=== PATIENT | male | born 1940 | race Caucasian/White ===

== ENCOUNTER 2018-02-27 16:40 | Inpatient (IN) ==
--- NOTE | 2018-02-27 17:11 | ED ---
HPI General Chief complaint: Respiratory Symptoms Stated complaint: Breathing Complaint Time Seen by Provider: 02/27/18 16:56 History of Present Illness HPI narrative: 77-year-old male with history of polymyalgia rheumatica presents for evaluation of dyspnea. Symptoms started initially 1 month ago. He reports dyspnea with exertion and orthopnea. He reports that he has had swelling around the ankles. He was seen by his primary care physician 1 week ago and prescribed a diuretic, he does not recall the name right now, but symptoms have worsened which prompted evaluation. He reports that he has had a cough with some yellow phlegm production. He denies any chest pain, nausea, vomiting, abdominal pain, leg pain, recent travel, recent surgery. Denies any history of cardiac illness, COPD, liver disease. No other complaints. Primary care physician Dr. Mcnair Related Data Home Medications Medication Instructions Recorded Confirmed alprazolam 0.5 mg PO DAILY 02/27/18 02/27/18 finasteride 1 mg PO DAILY 02/27/18 02/27/18 furosemide 20 mg PO DAILY 02/27/18 02/27/18 meloxicam 15 mg PO DAILY 02/27/18 02/27/18 tamsulosin 0.4 mg PO DAILY 02/27/18 02/27/18 trazodone 50 mg PO HS 02/27/18 02/27/18 Allergies Allergy/AdvReac Type Severity Reaction Status Date / Time No Known Allergies Allergy Verified 02/27/18 16:50 Review of Systems ROS: all other systems reviewed are negative PMFSH Medical History Medical History PMR (polymyalgia rheumatica) (Acute) Surgical History Surgical History Previous back surgery (Acute) Social History Social History Substance History: No History of Abuse Smoking Status: Former smoker How Often Do You Have a Drink Containing Alcohol: 4 or more times a week Recent Travel in [facility] within the Last 8 Weeks: No Recent Out of Country Travel within the Last 8 Weeks: No Exam Narrative Exam Narrative: GENERAL: Well-developed well-nourished male in no acute distress SKIN: Warm and dry. HEAD: Atraumatic. Normocephalic. EYES: Pupils equal and round. No scleral icterus. No injection or drainage. ENT: No nasal bleeding or discharge. Mucous membranes pink and moist. NECK: Trachea midline. No JVD. CARDIOVASCULAR: Regular rate and rhythm. No murmur appreciated. RESPIRATORY: No accessory muscle use. Crackles noted at the bases. GASTROINTESTINAL: Abdomen soft, non-tender, nondistended. Hepatic and splenic margins not palpable. MUSCULOSKELETAL: No obvious deformities. No clubbing. No cyanosis. 1+ pretibial edema bilaterally. NEUROLOGICAL: Awake and alert. No obvious cranial nerve deficits. Motor grossly within normal limits. Normal speech. Course Initial Documented Vital Signs Temperature 97.7 F 02/27/18 16:48 Pulse Rate 89 02/27/18 16:48 Respiratory Rate 20 02/27/18 16:48 Blood Pressure 164/86 H 02/27/18 16:48 Pulse Oximetry 97 02/27/18 16:48 Last Documented Vital Signs Temperature 97.7 F 02/27/18 16:48 Pulse Rate 120 H 02/27/18 20:05 Respiratory Rate 18 02/27/18 20:05 Blood Pressure 157/105 H 02/27/18 20:05 Pulse Oximetry 98 02/27/18 20:05 Medical Decision Making SHIRLEY Attestation SHIRLEY supervised visit: Yes Attestation: I, Dr. Rich, have reviewed the advance practice practitioner's documentation and am in agreement, met with the patient face to face, made the diagnosis, and the medical decision making was done by me. *My assessment and Findings: Patient is a 77 year old male who comes in complaining of SOB. Exam shows bilateral lower extremity edema as well as crackles in the lungs. Patient is seen to have multiple PVCs on the clinical research monitor. Started on Amiodarone, cardiology consulted. Patient has already taken two doses of Lasix this morning. Patient will require admission. [facility] Narrative Medical decision making narrative: The patient was placed on ECG monitoring pulse oximetry. Twelve-lead EKG was obtained revealing sinus rhythm with frequent PVCs. Lab work, chest x-ray ordered. Lab work reveals a BNP of 548, calcium 8, chest x-ray reveals patchy bibasilar infiltrates, CT pulmonary angiogram reveals bilateral pleural effusions. During the patient's hospital stay multiple PVCs were noted, heart rate intermittently elevated up to 130. The patient was started on amiodarone, bolus /drip, discussed with bow tacker Dr. antonio who is agreeable. The patient will be admitted for further workup. Medical Screen Exam Complete: Yes Emergency Medical Condition: Yes Differential Diagnosis Differential Diagnosis: CHF, pulmonary edema, bronchitis, pneumonia, pleural effusion, pneumothorax, pulmonary embolism Lab Data Result diagrams: 02/27/18 17:12 02/27/18 17:12 Lab Results 02/27/18 02/27/18 02/27/18 Range/Units 17:12 17:12 17:12 WBC 11.4 H (4.0-11.0) th/mm3 RBC 4.04 L (4.50-5.90) mil/mm3 Hgb 12.4 L (13.0-17.0) gm/dL Hct 36.6 L (39.0-51.0) % MCV 90.7 (80.0-100.0) fL MCH 30.8 (27.0-34.0) pg MCHC 34.0 (32.0-36.0) % RDW 13.6 (11.6-17.2) % Plt Count 412 (150-450) th/mm3 MPV 8.6 (7.0-11.0) fL Neut % (Auto) 64.7 (16.0-70.0) % Lymph % (Auto) 23.6 (9.0-44.0) % [place] % (Auto) 9.6 H (0.0-8.0) % Eos % (Auto) 1.0 (0.0-4.0) % Baso % (Auto) 1.1 (0.0-2.0) % Neut # (Auto) 7.4 (1.8-7.7) th/mm3 Lymph # (Auto) 2.7 (1.0-4.8) th/mm3 [place] # (Auto) 1.1 H (0.0-0.9) th/mm3 Eos # (Auto) 0.1 (0.0-0.4) th/mm3 Baso # (Auto) 0.1 (0.0-0.2) th/mm3 WBC Differential . Differential Comment Auto diff final Sodium 136 (136-145) meq/L Potassium 4.3 (3.5-5.1) meq/L Chloride 103 (98-107) meq/L Carbon Dioxide 26.0 (21.0-32.0) meq/L Anion Gap 7 (5-15) meq/L BUN 12 (7-18) mg/dL Creatinine 0.98 (0.60-1.30) mg/dL Estimated GFR 74 L (>89) mL/min Random Glucose 97 (74-106) mg/dL Calcium 8.0 L (8.5-10.1) mg/dL Magnesium 2.2 (1.5-2.5) mg/dL Total Bilirubin 0.4 (0.2-1.0) mg/dL AST 12 L (15-37) U/L ALT 22 (12-78) U/L Alkaline Phosphatase 105 (45-117) U/L Total Creatine Kinase 89 (39-308) U/L Troponin I 0.03 (0.02-0.05) ng/mL B-Natriuretic Peptide 548 H (0-100) pg/mL Total Protein 7.3 (6.4-8.2) g/dL Albumin 3.4 (3.4-5.0) g/dL Imaging Data Radiologist's impression: Chest X-Ray 02/27/18 17:08 CONCLUSION: Patchy bibasilar infiltrates with prominence of pulmonary vasculature suggestive most likely of pulmonary edema versus pneumonia. Chest CTA 02/27/18 18:43 CONCLUSION: Bilateral pleural effusions, bibasilar consolidation and right middle lobe/ lingula atelectasis and/or infiltrate. There is no evidence of PE for technique. Discharge Plan Discharge Disposition Patient Disposition: ED Admit(ED Internal Use Only) Discharge Condition Condition: Stable Discharge Details Diagnosis: Frequent PVCs, Pleural effusion, bilateral, Elevated brain natriuretic peptide (BNP) level Physicians Team ED Provider: Tati Rich ED Midlevel Provider: Joao Hawkins Primary Care Provider: UNKNOWN, Rxs /Orders / Referrals /Forms Prescriptions: No Action trazodone 50 mg Tablet 50 mg PO HS RF: 0 meloxicam 15 mg Tablet 15 mg PO DAILY RF: 0 alprazolam 0.5 mg Tablet 0.5 mg PO DAILY RF: 0 tamsulosin 0.4 mg Capsule 0.4 mg PO DAILY RF: 0 furosemide 20 mg Tablet 20 mg PO DAILY RF: 0 finasteride 1 mg Tablet 1 mg PO DAILY RF: 0 Status ED Status: Pending Admission
[2018-02-27 17:29] LABS: Baso # (Auto) 0.1 th/mm3 (0.0-0.2); Baso % (Auto) 1.1 % (0.0-2.0); Eos # (Auto) 0.1 th/mm3 (0.0-0.4); Hematocrit 36.6 % (39.0-51.0); Hemoglobin 12.4 gm/dL (13.0-17.0); Lymph # (Auto) 2.7 th/mm3 (1.0-4.8); Lymph % (Auto) 23.6 % (9.0-44.0); Mean Corpuscular Hemoglobin 30.8 pg (27.0-34.0); Mean Corpuscular Volume 90.7 fL (80.0-100.0); Mean Platelet Volume 8.6 fL (7.0-11.0); Mono # (Auto) 1.1 th/mm3 (0.0-0.9); Mono % (Auto) 9.6 % (0.0-8.0); Neut # (Auto) 7.4 th/mm3 (1.8-7.7); Neut % (Auto) 64.7 % (16.0-70.0); Platelet Count 412 th/mm3 (150-450); Red Blood Count 4.04 mil/mm3 (4.50-5.90); Red Cell Distribution Width 13.6 % (11.6-17.2); White Blood Count 11.4 th/mm3 (4.0-11.0)
--- NOTE | 2018-02-27 17:46 | XR ---
EXAM DATE: 02/27/2018 5:42 PM EST AGE/SEX: 77 years / Male INDICATIONS: Cough. CLINICAL DATA: This is the patient's initial encounter. Patient reports that signs and symptoms have been present for 1 day and indicates a pain score of 0/10. MEDICAL/SURGICAL HISTORY: None. None. COMPARISON: [facility], XR CHEST PA AND LAT, 10/16/2017. . FINDINGS: There appears to be some patchy infiltrates in both lower lung queen. There is prominence of the pul monary vasculature. These findings are new compared to the prior exam. The heart size is enlarged. Th ere is mild blunting of the costophrenic angles. The bony structures are grossly intact and stable. CONCLUSION: Patchy bibasilar infiltrates with prominence of pulmonary vasculature suggestive most likely of pulmo nary edema versus pneumonia. Electronically signed by: Basilio Estes MD Board Certified Radiologist 02/27/2018 5:44 PM EST
[2018-02-27] MEDS ORDERED: Calcium Gluconate Inj 1 GM in Dextrose 5% in Water Inj 100 ML IV.SIG ONE ×2 (18:03)
[2018-02-27 18:15] LABS: Albumin 3.4 g/dL (3.4-5.0); Anion Gap 7 meq/L (5-15); Aspartate Aminotransferase 12 U/L (15-37); Blood Urea Nitrogen 12 mg/dL (7-18); Chloride 103 meq/L (98-107); Glomerular Filtration Rate 74 mL/min (>89); Glucose,Random 97 mg/dL (74-106); Magnesium 2.2 mg/dL (1.5-2.5); Potassium 4.3 meq/L (3.5-5.1); Sodium 136 meq/L (136-145)
[2018-02-27 18:19] LABS: Alanine Aminotransferase 22 U/L (12-78); Alkaline Phosphatase 105 U/L (45-117); Total Protein 7.3 g/dL (6.4-8.2); Troponin I 0.03 ng/mL (0.02-0.05)
[2018-02-27 18:21] LABS: Creatine Kinase 89 U/L (39-308)
[2018-02-27] MEDS ORDERED: Amiodarone Inj 150 MG in Dextrose 5% in Water Inj 97 ML IV.SIG ONE ×2 (18:48)
--- NOTE | 2018-02-27 19:46 | CT ---
EXAM DATE: 02/27/2018 7:41 PM EST AGE/SEX: 77 years / Male INDICATIONS: Shortness of breath and chest tightness. CLINICAL DATA: This is the patient's initial encounter. Patient reports that signs and symptoms have been present for 1 week and indicates a pain score of 3/10. MEDICAL/SURGICAL HISTORY: . Polymyalgia rheumatic. . Back surgery. RADIATION DOSE: 10.62 CTDI (mGy) COMPARISON: [facility], CHEST 1V SINGLE AP, 02/27/2018. . TECHNIQUE: Volumetric scanning was performed using a multi-row detector CT scanner during bolus infu tyesha of 74 ml Omnipaque 350 (iohexol) nonionic water-soluble contrast as a single exam dose. The elise a was post processed with a variety of visualization algorithms including full volume maximum intensi ty projection and sliding thin slab reformation. Using automated exposure control and adjustment of the mA and/or kV according to patient size, radiation dose was kept as low as reasonably achievable t o obtain optimal diagnostic quality images. DICOM format image data is available electronically for review and comparison. FINDINGS: Significant chronic degenerative changes within bilateral glenohumeral joints. Moderate bilateral ple ural effusions are present with bibasilar consolidation and/or compressive collapse in addition to fo kunal atelectasis and/or infiltrate within right middle lobe and lingula. There is no evidence of PE fo r technique. CONCLUSION: Bilateral pleural effusions, bibasilar consolidation and right middle lobe/lingula atelectasis and/or infiltrate. There is no evidence of PE for technique. Electronically signed by: Garret Hernández MD Board Certified Radiologist 02/27/2018 7:45 PM EST
[2018-02-27] MEDS ORDERED: Acetaminophen 325 MG Tablet PO PRN (20:26)
[2018-02-27] MEDS ORDERED: Bisacodyl 10 MG Supp RECTAL PRN (20:26)
--- NOTE | 2018-02-27 23:57 | P.HPIM ---
History of Present Illness Primary Care Physician: UNKNOWN History of Present Illness: 77-year-old male with a history of polymyalgia rheumatica who presents with a one-week history of progressively worsening shortness of breath, cough productive of clear sputum, mild peripheral edema in the ankles. He saw his primary care doctor 1 week ago and was prescribed Lasix which he has been taking without significant improvement. Patient denies any chest pain, nausea, vomiting, lightheadedness, dizziness, fevers, chills. Inpatient Certification: I certify that the inpatient services were ordered in accordance with Medicare regulations governing the order. This includes certification that hospital inpatient services are reasonable and necessary and in the case of services not specified as inpatient-only under 42 CFR 419.22(n), that they are appropriately provided as inpatient services in accordance to with the 2-midnight benchmark under 43 CFR 412.3(e) Estimated Total Length of Stay (Days): 2 Plans for Post Hospital Care: Not yet determined Review of Systems All other systems reviewed negative except as stated in [facility] - History History Provided By: Patient, Family Member - Medical History Medical History: Medical History (Last Updated 02/28/18 @ 00:03 by Christopher Keyes MD) Anxiety BPH (benign prostatic hyperplasia) PMR (polymyalgia rheumatica) - Surgical History Surgical History: Surgical History (Last Updated 02/27/18 @ 16:50 by Diane Reyes) Previous back surgery - Family History Family History: Family History (Last Updated 02/28/18 @ 00:05 by Christopher Keyes MD) Other Family history non-contributory - Tobacco History Smoking Status: Former smoker - Alcohol History How Often Do You Have a Drink Containing Alcohol: 4 or more times a week - Substance Use History Substance History: No History of Abuse - Travel History Recent Travel in the [place] Within the Last 8 Weeks: No Recent Travel Out of the Country Within the Last 8 Weeks: No - Immunization History Tetanus Immunization: Unsure Medications and Allergies Active Medications: Active Medications Acetaminophen (Tylenol) 650 mg PO Q4H PRN PRN Reason: Temp > 100.4 Al Hydroxide/Mg Hydroxide (Milk Of [place] Liq) 30 ml PO Q12H PRN PRN Reason: Mild Constipation Bisacodyl (Dulcolax Supp) 10 mg RECTAL DAILY PRN PRN Reason: SEVERE CONSITIPATION Finasteride (Proscar) 1 mg PO DAILY KENYA Furosemide (Lasix) 20 mg PO DAILY KENYA Furosemide (Lasix Inj) 20 mg IV.PUSH BID@0900,1800 KENYA Amiodarone HCl 450 mg/ (Dextrose) 250 mls @ 33.33 mls/hr IV.CONT TITRATE PRN; Protocol PRN Reason: Per Protocol Last Admin: 02/27/18 19:31 Dose: 1 mg/min, 33.33 mls/hr Lactulose (Lactulose Liq) 30 ml PO DAILY PRN PRN Reason: SEVERE CONSITIPATION Ondansetron HCl (Zofran Inj) 4 mg IV.PUSH Q6H PRN PRN Reason: NAUSEA OR VOMITING Sennosides (Senokot) 17.2 mg PO Q12H PRN PRN Reason: Moderate Constipation Sodium Chloride (Ns Flush) 2 ml IV.FLUSH BID KENYA Sodium Chloride (Ns Flush) 2 ml IV.FLUSH PRN PRN PRN Reason: FLUSH AFTER USING IV ACCESS Tamsulosin HCl (Flomax) 0.4 mg PO DAILY [facility] Allergies Allergy/AdvReac Type Severity Reaction Status Date / Time No Known Allergies Allergy Verified 02/27/18 16:50 Home Medications Medication Instructions Recorded Confirmed Type alprazolam 0.5 mg PO DAILY 02/27/18 02/27/18 History finasteride 1 mg PO DAILY 02/27/18 02/27/18 History furosemide 20 mg PO DAILY 02/27/18 02/27/18 History meloxicam 15 mg PO DAILY 02/27/18 02/27/18 History tamsulosin 0.4 mg PO DAILY 02/27/18 02/27/18 History trazodone 50 mg PO HS 02/27/18 02/27/18 History Exam Vital signs: Vital Signs 02/27/18 16:48 02/27/18 20:05 02/27/18 22:40 Temperature 97.7 F Pulse Rate 89 120 H 119 H Respiratory Rate 20 18 18 Blood Pressure 164/86 H 157/105 H 129/80 Pulse Oximetry 97 98 97 02/27/18 22:47 02/27/18 23:15 Temperature Pulse Rate 59 L Respiratory Rate 17 Blood Pressure 128/70 Pulse Oximetry 97 Intake & Output 02/27/18 02/27/18 02/28/18 06:59 18:59 06:59 Intake Total 210 / 210 Balance 210 / 210 Weight 90.718 kg Intake: IV / Cordarone Inj 150 MG In D5W Inj 100 / 100 97 ML @ 600 mls/hr IV.SIG ONCE ONE Rx#:[id number] Calcium Gluconate Inj 1 GM In 110 / 110 D5W Inj 100 ML @ 110 mls/hr IV. SIG ONCE ONE Rx#:[id number] Narrative: GENERAL: Patient lying in bed. Sleeping, wakes of her exam. Alert and oriented x3. SKIN: Warm and dry. HEAD: Atraumatic. Normocephalic. EYES: Pupils equal and round. No scleral icterus. No injection or drainage. ENT: No nasal bleeding or discharge. Mucous membranes pink and moist. NECK: Trachea midline. Positive JVD. CARDIOVASCULAR: Regular rate and rhythm. RESPIRATORY: No accessory muscle use. Clear to auscultation. Breath sounds equal bilaterally. GASTROINTESTINAL: Abdomen soft, non-tender, nondistended. Hepatic and splenic margins not palpable. MUSCULOSKELETAL: Extremities without clubbing, cyanosis. +2 bilateral lower extremity edema. No obvious deformities. NEUROLOGICAL: Awake and alert. No obvious cranial nerve deficits. Motor grossly within normal limits. Five out of 5 muscle strength in the arms and legs. Normal speech. PSYCHIATRIC: Appropriate mood and affect; insight and judgment normal. Results - Labs CBC & Chem 7: 02/27/18 17:12 02/27/18 17:12 Labs: Short CBC 02/27/18 Range/Units 17:12 WBC 11.4 H (4.0-11.0) th/mm3 Hgb 12.4 L (13.0-17.0) gm/dL Hct 36.6 L (39.0-51.0) % Plt Count 412 (150-450) th/mm3 [facility] 02/27/18 17:12 Sodium 136 Potassium 4.3 Chloride 103 Carbon Dioxide 26.0 BUN 12 Creatinine 0.98 Calcium 8.0 L Cardiac Enzymes 02/27/18 Range/Units 17:12 Total Creatine Kinase 89 (39-308) U/L Troponin I 0.03 (0.02-0.05) ng/mL Liver Function 02/27/18 Range/Units 17:12 Total Bilirubin 0.4 (0.2-1.0) mg/dL AST 12 L (15-37) U/L ALT 22 (12-78) U/L Alkaline Phosphatase 105 (45-117) U/L Albumin 3.4 (3.4-5.0) g/dL - Imaging Impressions Chest X-Ray 02/27/18 17:08 CONCLUSION: Patchy bibasilar infiltrates with prominence of pulmonary vasculature suggestive most likely of pulmonary edema versus pneumonia. Chest CTA 02/27/18 18:43 CONCLUSION: Bilateral pleural effusions, bibasilar consolidation and right middle lobe/ lingula atelectasis and/or infiltrate. There is no evidence of PE for technique. Caprini VTE Risk Assessment Caprini VTE Risk Assessment: Moderate/High Risk (score >= 2) Caprini Risk Assessment Model: Point Value = 1 Point Value = 2 Point Value = 3 Point Value = 5 Age 41-60 Minor surgery BMI > 25 kg/m2 Swollen legs Varicose veins or History of unexplained or recurrent spontaneous Oral contraceptives or hormone replacement Sepsis (< 1 month) Serious lung disease, including pneumonia (< 1 month) Abnormal pulmonary function Acute myocardial infarction Congestive heart failure (< 1 month) History of inflammatory bowel disease Medical patient at bed rest Age 61-74 Arthroscopic surgery Major open surgery (> 45 min) Laparoscopic surgery (> 45 min) Malignancy Confined to bed (> 72 hours) Immobilizing plaster cast Central venous access Age >= 75 History of VTE Family history of VTE Factor V Leiden Prothrombin [id number] Lupus anticoagulant Anticardiolipin antibodies Elevated serum homocysteine Heparin-induced thrombocytopenia Other congenital or acquired thrombophilia Stroke (< 1 month) Elective arthroplasty Hip, pelvis, or leg fracture Acute spinal cord injury (< 1 month) Prophylaxis Regimen: Total Risk Factor Score Risk Level Prophylaxis Regimen 0-1 Low Early ambulation 2 Moderate Order ONE of the following: *Sequential Compression Device (SCD) *Heparin 5000 units SQ BID 3-4 Higher Order ONE of the following medications: *Heparin 5000 units SQ TID *Enoxaparin/Lovenox 40 mg SQ daily (WT < 150 kg, CrCl > 30 mL/min) *Enoxaparin/Lovenox 30 mg SQ daily (WT < 150 kg, CrCl > 10-29 mL/min) *Enoxaparin/Lovenox 30 mg SQ BID (WT < 150 kg, CrCl > 30 mL/min) AND/OR *Sequential Compression Device (SCD) 5 or more Highest Order ONE of the following medications: *Heparin 5000 units SQ TID (Preferred with Epidurals) *Enoxaparin/Lovenox 40 mg SQ daily (WT < 150 kg, CrCl > 30 mL/min) *Enoxaparin/Lovenox 30 mg SQ daily (WT < 150 kg, CrCl > 10-29 mL/min) *Enoxaparin/Lovenox 30 mg SQ BID (WT < 150 kg, CrCl > 30 mL/min) AND *Sequential Compression Device (SCD) Assessment and Plan - Plan //CHF exacerbation //Bilateral pleural effusions on CT, personally visualized //A. fib, RVR with aberrancy = BNP elevated in the 500s. EKG with A. fib, RVR with aberrancy. = Chest x-ray with pulmonary vascular congestion. CTA negative for embolism, does show bilateral pleural effusions, likely secondary to CHF exacerbation. -Troponin not elevated. Trend EKGs and troponins. = Continue amiodarone drip started as per cardiology. Echo pending. Consult cardiology. Start on IV Lasix scheduled. Fluid restrictions. Monitor. //History of BPH. Continue home medications. Discussed Condition With: Patient, nurse, ED physician.
[2018-02-28] MEDS ORDERED: Heparin 10,000 UNITS/10 ML Vial (for IV use) IV.PUSH STA (00:11)
[2018-02-28 00:42] LABS: Activated Partial Thrombo Time 29.9 sec (23.4-31.7); INR 1.2 Ratio; Prothrombin Time 11.9 sec (9.8-11.6)
[2018-02-28] MEDS: Heparin Drip 25,000 UNIT/250 ML BAG IV.CONT PRN ×2 (00:44→19:56)
[2018-02-28] MEDS ORDERED: Furosemide 20 MG Tablet PO SCH (09:00)
[2018-02-28] MEDS ORDERED: Finasteride 5 MG Tablet PO SCH (09:00)
[2018-02-28 09:35] LABS: Baso # (Auto) 0.1 th/mm3 (0.0-0.2); Baso % (Auto) 1.1 % (0.0-2.0); Eos # (Auto) 0.2 th/mm3 (0.0-0.4); Eos % (Auto) 1.9 % (0.0-4.0); Hematocrit 38.7 % (39.0-51.0); Hemoglobin 12.5 gm/dL (13.0-17.0); Lymph # (Auto) 2.9 th/mm3 (1.0-4.8); Lymph % (Auto) 22.2 % (9.0-44.0); Mean Corpuscular HGB Conc 32.4 % (32.0-36.0); Mean Corpuscular Hemoglobin 29.6 pg (27.0-34.0); Mean Corpuscular Volume 91.5 fL (80.0-100.0); Mono % (Auto) 7.6 % (0.0-8.0); Neut # (Auto) 8.7 th/mm3 (1.8-7.7); Neut % (Auto) 67.2 % (16.0-70.0); Platelet Count 382 th/mm3 (150-450); Red Blood Count 4.22 mil/mm3 (4.50-5.90); Red Cell Distribution Width 13.7 % (11.6-17.2); White Blood Count 12.9 th/mm3 (4.0-11.0)
[2018-02-28 09:50] LABS: Alanine Aminotransferase 22 U/L (12-78); Albumin 3.3 g/dL (3.4-5.0); Anion Gap 8 meq/L (5-15); Aspartate Aminotransferase 12 U/L (15-37); Blood Urea Nitrogen 9 mg/dL (7-18); Calcium 8.8 mg/dL (8.5-10.1); Carbon Dioxide 25.9 meq/L (21.0-32.0); Chloride 102 meq/L (98-107); Glomerular Filtration Rate 78 mL/min (>89); Glucose,Random 102 mg/dL (74-106); Potassium 3.7 meq/L (3.5-5.1); Sodium 136 meq/L (136-145)
[2018-02-28 09:55] LABS: Alkaline Phosphatase 102 U/L (45-117); Total Protein 7.2 g/dL (6.4-8.2)
--- NOTE | 2018-02-28 11:21 | ECG ---
Date Performed: 02/27/2018 Time Performed: 17:44:52 PTAGE: 77 years EKG: ATRIAL FIBRILLATION WITH ABERRANT CONDUCTION OR VENTRICULAR PREMATURE COMPLEXES ST DEVIATIO N AND MODERATE T-WAVE ABNORMALITY, CONSIDER INFERIOR ISCHEMIA ABNORMAL ECG Compared to PREVIOUS TRACING atrial fibrillation with frequent PVCs is new PREVIOUS TRACIN 018 17.11 DOCTOR: Peter Sanchez Interpretating Date/Time 02/28/2018 11:20:24
--- NOTE | 2018-02-28 11:23 | ECG ---
Date Performed: 02/28/2018 Time Performed: 00:40:22 PTAGE: 77 years EKG: probable atrial fibrillation Left axis deviation IV conduction defect Ant/septal and latera l ST-T changes suggest myocardial injury/ischemia Compared to previous tracing no change Abnormal ECG PREVIOUS TRACING : 02/27/2018 20.51 DOCTOR: Peter Sanchez Interpretating Date/Time 02/28/2018 11:22:49
--- NOTE | 2018-02-28 11:23 | ECG ---
Date Performed: 02/27/2018 Time Performed: 20:51:07 PTAGE: 77 years EKG: Probable atrial fibrillation with ventricular response INTRAVENTRICULAR CONDUCTION DELAY AB NORMAL ECG Compared to PREVIOUS TRACING Intraventricular conduction delay is now present which may be rate rela radha Clinical correlation is recommended PREVIOUS TRACIN02/27/2018 17.44 DOCTOR: Peter Sanchez Interpretating Date/Time 02/28/2018 11:21:42
--- NOTE | 2018-02-28 11:24 | ECG ---
Date Performed: 02/28/2018 Time Performed: 05:28:10 PTAGE: 77 years EKG: probable atrial fibrillation Left axis deviation IV conduction defect Ant/septal and latera l ST-T changes suggest myocardial injury/ischemia no change Compared to previous tracing Abnormal ECG PREVIOUS TRACING : 02/28/2018 00.40 DOCTOR: Peter Sanchez Interpretating Date/Time 02/28/2018 11:23:39
--- NOTE | 2018-02-28 13:40 | P.PNIM ---
Subjective Interval history: Still short of breath worse when getting up and using the restroom. Only had palpitation when he sat up. No chief complaint of chest pain. Having a productive cough. No chills or fevers. Has had lower extremity swelling over the past few weeks. Usually ambulates independently. Physical Exam Vital signs: Last Vital Signs Temp 97.5 F L 02/28/18 12:00 Pulse 120 H 02/28/18 12:00 Resp 18 02/28/18 12:00 BP 126/80 02/28/18 12:00 Pulse Ox 94 L 02/28/18 12:00 Intake & Output 02/26/18 02/27/18 02/28/18 03/01/18 06:59 06:59 06:59 06:59 Intake Total 940 / 940 Output Total 350 / 350 Balance 590 / 590 Weight 93 kg Narrative: GENERAL: This is a well-nourished, well-developed patient, in no apparent distress. CARDIOVASCULAR: Irregular rate regular rhythm RESPIRATORY: Diminished breath sounds with few bibasilar crackles GASTROINTESTINAL: Abdomen soft, non-tender, nondistended. Normal active bowel sounds MUSCULOSKELETAL: Extremities without clubbing, cyanosis, 1+ edema with bilateral SCDs NEURO: Alert & Oriented x4 to person, place, time, situation. Moves all ext x4 Results Labs CBC & Chem 7: 02/28/18 09:14 02/28/18 09:14 Imaging Imaging: Impressions Chest X-Ray 02/27/18 17:08 CONCLUSION: Patchy bibasilar infiltrates with prominence of pulmonary vasculature suggestive most likely of pulmonary edema versus pneumonia. Chest CTA 02/27/18 18:43 CONCLUSION: Bilateral pleural effusions, bibasilar consolidation and right middle lobe/ lingula atelectasis and/or infiltrate. There is no evidence of PE for technique. Assessment and Plan (1) CHF exacerbation: Code(s): I50.9 - Heart failure, unspecified Status: Acute (2) Atrial fibrillation with RVR: Code(s): I48.91 - Unspecified atrial fibrillation Status: Acute Plan 77-year-old white male with history of polymyalgia rheumatica who presents with one week history of progressively short of breath and lower extremity edema with Acute CHF exacerbation, new onset Continue with IV Lasix, fluid restriction, monitor I's and O's, and had a pending appointment with a tank car cleaner next week as referred by his primary care physician. Await cardiology consult 2D echo pending. New onset of A. fib, RVR -continue with amiodarone drip, continue with heparin drip. 2D echo. Further recommendations per cardiology. Serial cardiac enzymes negative History of BPH. Continue home medications, Flomax. DVT prophylaxisheparin
--- NOTE | 2018-02-28 15:19 | ECHRPT ---
Indication: HEART FAILURE CONCLUSIONS Normal left ventricular size. Wall thickness is normal. The left ventricular systolic function is severely reduced with an estimated ejection fraction in th e range of 30-35%. There was limited left ventricular wall motion assessment due to poor endocardial visualization, [facility] suspect inferior hypokinesis. Calcification of the posterior mitral valve leaflet. Mild to moderate mitral valve regurgitation. The estimated pulmonary arterial pressure is 37 mmHg. A Large left sided pleural effusion is noted. BP: / HR: Rhythm: MEASUREMENTS (Male / Female) Normal Values Technical Quality:Very technically difficult study 2D ECHO LV Diastolic Diameter PLAX 4.5 cm 4.2 - 5.9 / 3.9 - 5.3 cm LV Systolic Diameter PLAX 4.2 cm IVS Diastolic Thickness 0.9 cm 0.6 - 1.0 / 0.6 - 0.9 cm LVPW Diastolic Thickness 1.0 cm 0.6 - 1.0 / 0.6 - 0.9 cm LV Relative Wall Thickness 0.4 RV Internal Dim ED PLAX 3.3 cm LVOT Diameter 1.8 cm Aortic Root Diameter 3.2 cm LA Systolic Diameter LX 4.1 cm 3.0 - 4.0 / 2.7 - 3.8 cm LV Ejection Fraction MOD 4C 33.7 % LV Ejection Fraction 4C AL 34.6 % DOPPLER AV Peak Velocity 146.0 cm/s AV Peak Gradient 8.5 mmHg AV Mean Gradient 5.0 mmHg AV Velocity Time Integral 20.5 cm LVOT Peak Velocity 85.7 cm/s LVOT Peak Gradient 2.9 mmHg LVOT Velocity Time Integral 12.5 cm AV Area Cont Eq vti 1.6 cm AV Area Cont Eq pk 1.5 cm Mitral E Point Velocity 84.4 cm/s LV E' Lateral Velocity 3.5 cm/s Mitral E to LV E' Lateral Ratio 24.0 LV E' Septal Velocity 3.0 cm/s Mitral E to LV E' Septal Ratio 27.9 TR Peak Velocity 258.0 cm/s TR Peak Gradient 26.6 mmHg Right Atrial Pressure 10.0 mmHg Pulmonary Artery Systolic Pressu 36.6 mmHg Right Ventricular Systolic Press 36.6 mmHg PV Peak Velocity 124.0 cm/s PV Peak Gradient 6.2 mmHg FINDINGS LEFT VENTRICLE Normal left ventricular size. Wall thickness is normal. The left ventricular systolic function is severely reduced with an estimated ejection fraction in th e range of 30-35%. There was limited left ventricular wall motion assessment due to poor endocardial visualization, tho ugh suspect inferior hypokinesis. RIGHT VENTRICLE Normal right ventricular size and systolic function. LEFT ATRIUM The left atrial size is normal. RIGHT ATRIUM The right atrial size is normal. ATRIAL SEPTUM Normal atrial septal thickness without atrial level shunting by limited color doppler interrogation. AORTA The aortic root and proximal ascending aorta are normal in size on limited imaging. MITRAL VALVE Calcification of the posterior mitral valve leaflet. Mild to moderate mitral valve regurgitation. AORTIC VALVE Trileaflet aortic valve. No aortic valve stenosis or regurgitation. TRICUSPID VALVE The estimated pulmonary arterial pressure is 37 mmHg. PULMONARY VALVE No pulmonary valve regurgitation or stenosis. VESSELS The inferior vena cava is normal in size. PERICARDIUM A large left sided pleural effusion is noted. Tra Solis MD (Electronically Signed) Final Date:28 February 2018 15:18
--- NOTE | 2018-02-28 17:30 | MB ---
cc: Shelby Reyes MD DATE: 02/28/2018 HISTORY OF PRESENT ILLNESS: Mr. Birch is a 77-year-old white male with history of polymyalgia rheumatica, who has had progressive shortness of breath over the last several weeks. He also complains of substernal chest discomfort, cough productive of clear sputum and mild ankle edema. He was started on Lasix by his primary physician 1 week ago without any improvement. He was diagnosed with new onset atrial fibrillation. PAST MEDICAL HISTORY: Positive for polymyalgia rheumatica, BPH, anxiety. PAST SURGICAL HISTORY: Back surgery. MEDICATIONS AT HOME: Include: 1. Xanax. 2. Finasteride. 3. Furosemide. 4. Meloxicam. 5. Tamsulosin. 6. Trazodone. ALLERGIES: NONE. SOCIAL HISTORY: The patient does not smoke. He drinks 1 glass of wine daily. FAMILY HISTORY: Negative for heart disease. REVIEW OF SYSTEMS: Otherwise negative. PHYSICAL EXAMINATION: VITAL SIGNS: Blood pressure 143/87, pulse 109 and irregular. HEENT: Negative 2+ carotid upstrokes, no bruits. LUNGS: Clear. HEART: Irregularly irregular with a 1/6 systolic murmur. ABDOMEN: Soft, no bruits. EXTREMITIES: With 1 to 2+ pitting ankle edema, pretibial edema, 1+ distal pulses. NEUROLOGIC: Grossly nonfocal. LABORATORY DATA: EKG was reviewed and showed atrial fibrillation, PVCs, aberrant beats, nonspecific ST-T changes. LABORATORY DATA: Hemoglobin 12.5, potassium 3.7, creatinine 0.94, AST 12, ALT 22. Troponin 0.040, 0.03 and 0.03. BNP 548. Echocardiogram showed moderately severe systolic function with an ejection fraction of 30% to 35%, inferior hypokinesis, mild to moderate mitral regurgitation and large left-sided pleural effusion. DIAGNOSES: 1. New onset atrial fibrillation. 2. Acute congestive heart failure. 3. Cardiomyopathy with moderate to severe left ventricular systolic dysfunction. 4. Unspecified angina. DISPOSITION: Mr. Birch will continue his current medical program including rate control, diuresis and anticoagulation with heparin. We will obtain adenosine myocardial perfusion study tomorrow to evaluate for ischemia. If significant ischemia is found on his stress test, we will proceed with cardiac catheterization. This was discussed with the patient and he understands the plan. MD Sarah Amador , 04:09 PM , 04:18 PM DORA
[2018-03-01 07:35] LABS: Baso # (Auto) 0.1 th/mm3 (0.0-0.2); Baso % (Auto) 1.2 % (0.0-2.0); Eos # (Auto) 0.2 th/mm3 (0.0-0.4); Eos % (Auto) 2.2 % (0.0-4.0); Hematocrit 36.5 % (39.0-51.0); Hemoglobin 11.9 gm/dL (13.0-17.0); Lymph # (Auto) 3.7 th/mm3 (1.0-4.8); Mean Corpuscular HGB Conc 32.5 % (32.0-36.0); Mean Corpuscular Hemoglobin 29.9 pg (27.0-34.0); Mean Corpuscular Volume 92.1 fL (80.0-100.0); Mean Platelet Volume 9.4 fL (7.0-11.0); Mono % (Auto) 9.8 % (0.0-8.0); Neut # (Auto) 5.5 th/mm3 (1.8-7.7); Neut % (Auto) 51.8 % (16.0-70.0); Platelet Count 320 th/mm3 (150-450); Red Blood Count 3.97 mil/mm3 (4.50-5.90); Red Cell Distribution Width 13.6 % (11.6-17.2); White Blood Count 10.6 th/mm3 (4.0-11.0)
[2018-03-01 07:59] LABS: Calcium 8.5 mg/dL (8.5-10.1); Carbon Dioxide 28.3 meq/L (21.0-32.0); Potassium 3.6 meq/L (3.5-5.1)
[2018-03-01] MEDS ORDERED: Regadenoson Inj 0.4 MG/5 ML Syringe IV.PUSH ONE (10:14)
--- NOTE | 2018-03-01 11:21 | P.PNIM ---
Subjective Interval history: Follow-up for shortness of breath and chest pain No chest pain, still short of breath, saturation is fine. No fever or chills. No palpitations. Telemetry shows atrial fibrillation with aberration. Physical Exam Vital signs: Last Vital Signs Temp 97.3 F L 03/01/18 07:00 Pulse 112 H 03/01/18 10:00 Resp 16 03/01/18 07:00 BP 131/78 03/01/18 07:00 Pulse Ox 98 03/01/18 09:00 Intake & Output 02/27/18 02/28/18 03/01/18 03/02/18 06:59 06:59 06:59 06:59 Intake Total 940 / 940 1580 / 1580 Output Total 350 / 350 2720 / 2720 Balance 590 / 590 -1140 / -1140 Weight 93 kg 93 kg Narrative: GENERAL: Not in distress CARDIOVASCULAR: Irregular rhythm, heart rate in the 120s at times. RESPIRATORY: Diminished breath sounds with few bibasilar crackles GASTROINTESTINAL: Abdomen soft, non-tender, nondistended. Normal active bowel sounds MUSCULOSKELETAL: Extremities without clubbing, cyanosis, 1+ edema with bilateral SCDs NEURO: Alert & Oriented x4 to person, place, time, situation. Moves all ext x4 Results Labs CBC & Chem 7: 03/01/18 06:20 03/01/18 06:20 Assessment and Plan (1) CHF exacerbation: Code(s): I50.9 - Heart failure, unspecified Status: Acute (2) Atrial fibrillation with RVR: Code(s): I48.91 - Unspecified atrial fibrillation Status: Acute Plan 77-year-old white male with history of polymyalgia rheumatica who presents with one week history of progressively short of breath and lower extremity edema. Chest x-ray showed patchy bibasilar infiltrates likely pulmonary edema versus pneumonia. CT showed bilateral pleural effusion, bibasilar consolidation and right middle lobe atelectasis and/or infiltrate. No PE. Acute systolic CHF exacerbation, new onset -echocardiogram showed ejection fraction of 30-35%, normal left ventricular size. Continue with IV Lasix, fluid restriction, monitor I's and O's. Recheck BMP tomorrow. Check hemoglobin A1c and lipid panel. New onset of A. fib, RVR -continue with amiodarone drip, switch to oral today if okay with cardiology, continue with heparin drip. Serial cardiac enzymes negative x2, cardiology following, stress test did not show any ischemia. History of BPH. Continue home medications, Flomax. DVT prophylaxisheparin Discharged home once cleared by cardiology, PT evaluation.
--- NOTE | 2018-03-01 12:32 | NM ---
EXAM DATE: 03/01/2018 12:28 PM EST AGE/SEX: 77 years / Male INDICATIONS:Congestive heart failure. . Progressive dyspnea and sub-sternal chest pain. CLINICAL DATA: This is the patient's initial encounter. Patient reports that signs and symptoms have been present for 1 day and indicates a pain score of 0/10. MEDICAL/SURGICAL HISTORY: . Benign prostatic hyperplasia. . Back. COMPARISON: No prior exams available for comparison. DOSE: 8.8 mCi Tc 99m Myoview at rest 27.4 mCi [id number] at stress 0.4 mg Lexiscan STRESS SYMPTOMS: Dyspnea. EJECTION FRACTION: 65 % TECHNIQUE: The patient underwent pharmacologic stress with infusion of prescribed dose. Continuous ECG tracing was monitored during stress. Gated SPECT imaging was performed after stress and conventi onal SPECT imaging was performed at rest. The examination was performed on a SPECT/CT scanner, both attenuation and non-corrected datasets were reviewed. FINDINGS: Distribution: The maximum perfused segment at stress is in the anterolateral wall. Perfusion Study: The pattern of perfusion at stress demonstrates reduction in perfusion to lobe ant eroseptal wall, posterior basal and inferoapical wall which are fixed during rest . Gated Study: There are intact wall motion and wall thickening without hypokinetic or dyskinetic segm ents. The ejection fraction is calculated at 65%. RISK CATEGORY: Low (<1% Annual Motality Rate) CONCLUSION: 1. No appreciable ischemia. Electronically signed by: Garret Hernández MD Board Certified Radiologist 03/01/2018 12:30 PM EST
--- NOTE | 2018-03-01 15:05 | P.PNCA ---
Subjective Interval history: Patient denies any CP, pressure, palpitations, dizziness, edema or SOB. Medications and Allergies Allergies Allergy/AdvReac Type Severity Reaction Status Date / Time No Known Allergies Allergy Verified 02/27/18 16:50 Home Medications Medication Instructions Recorded Confirmed Type alprazolam 0.5 mg PO DAILY 02/27/18 02/27/18 History finasteride 1 mg PO DAILY 02/27/18 02/27/18 History furosemide 20 mg PO DAILY 02/27/18 02/27/18 History meloxicam 15 mg PO DAILY 02/27/18 02/27/18 History tamsulosin 0.4 mg PO DAILY 02/27/18 02/27/18 History trazodone 50 mg PO HS 02/27/18 02/27/18 History Active Medications: Active Medications Acetaminophen (Tylenol) 650 mg PO Q4H PRN PRN Reason: Temp > 100.4 Al Hydroxide/Mg Hydroxide (Milk Of Magnesia Liq) 30 ml PO Q12H PRN PRN Reason: Mild Constipation Bisacodyl (Dulcolax Supp) 10 mg RECTAL DAILY PRN PRN Reason: SEVERE CONSITIPATION Finasteride (Proscar) 1 mg PO DAILY [facility] Furosemide (Lasix) 20 mg PO DAILY [facility] Last Admin: 02/28/18 10:31 Dose: 20 mg Furosemide (Lasix) 20 mg PO BID@0900,1800 [facility] Lactulose (Lactulose Liq) 30 ml PO DAILY PRN PRN Reason: SEVERE CONSITIPATION Metoprolol Tartrate (Lopressor) 25 mg PO BID [facility] Ondansetron HCl (Zofran Inj) 4 mg IV.PUSH Q6H PRN PRN Reason: NAUSEA OR VOMITING Sacubitril/Valsartan (Entresto 24 Mg/26 Mg Tablet) 1 tab PO BID [facility] Sennosides (Senokot) 17.2 mg PO Q12H PRN PRN Reason: Moderate Constipation Sodium Chloride (Ns Flush) 2 ml IV.FLUSH BID [facility] Last Admin: 03/01/18 08:55 Dose: 2 ml Sodium Chloride (Ns Flush) 2 ml IV.FLUSH PRN PRN PRN Reason: FLUSH AFTER USING IV ACCESS Tamsulosin HCl (Flomax) 0.4 mg PO DAILY [facility] Last Admin: 03/01/18 08:55 Dose: 0.4 mg Physical Exam Vital signs: Vital Signs 02/28/18 15:00 02/28/18 16:00 02/28/18 19:13 Temperature 97.5 F L Pulse Rate 69 77 Respiratory Rate 18 Blood Pressure 120/84 Pulse Oximetry 99 99 02/28/18 20:00 02/28/18 20:59 02/28/18 21:00 Temperature 97.5 F L Pulse Rate 118 H 64 Respiratory Rate 20 Blood Pressure 144/82 H Pulse Oximetry 97 100 02/28/18 22:00 02/28/18 23:00 03/01/18 00:00 Temperature Pulse Rate 68 67 64 Respiratory Rate 18 Blood Pressure 126/81 Pulse Oximetry 99 03/01/18 01:00 03/01/18 01:43 03/01/18 02:00 Temperature Pulse Rate 58 L 60 Respiratory Rate Blood Pressure Pulse Oximetry 99 03/01/18 03:00 03/01/18 04:00 03/01/18 05:00 Temperature Pulse Rate 64 60 60 Respiratory Rate 16 Blood Pressure 124/83 Pulse Oximetry 100 100 03/01/18 06:00 03/01/18 07:00 03/01/18 08:00 Temperature 97.3 F L Pulse Rate 58 L 69 62 Respiratory Rate 16 Blood Pressure 131/78 Pulse Oximetry 98 03/01/18 09:00 03/01/18 10:00 03/01/18 13:00 Temperature Pulse Rate 118 H 112 H 74 Respiratory Rate 16 Blood Pressure 118/41 L Pulse Oximetry 98 96 Intake & Output 02/28/18 03/01/18 03/01/18 18:59 06:59 18:59 Intake Total 1080 / 1080 500 / 500 250 / 250 Output Total 2019 700 / 700 Balance -940 / -940 -200 / -200 250 / 250 Weight 93 kg Intake: IV 500 / 500 250 / 250 Cordarone Inj 450 MG In D5W Inj 250 / 250 250 / 250 241 ML @ 1 MG/MIN 33.33 mls/hr IV.CONT TITRATE PRN Rx#: [id number] Heparin/D5W 25,000 U/250 mL 25, 250 / 250 000 unit In 250 ml @ 1,000 UNITS/HR 10 mls/hr IV.CONT TITRATE PRN Rx#:[id number] Oral 1080 / 1080 Output: Urine 2019 700 / 700 Other: # Bowel Movements 0 - Constitutional no acute distress - Routine HEENT Exam Head: Present: normocephalic Eye: Present: PERRL ENT: Present: mucous membranes moist - Routine Neck Exam Present: full ROM - Routine Respiratory Exam Present: CTA bilaterally - Routine Cardiovascular Exam Present: S1, S2, irregular rhythm - Routine Abdominal Exam Present: normoactive bowel sounds - Routine Extremities Exam Present: full ROM, pulses intact, normal capillary refill. Absent: cyanosis, clubbing, edema - Routine Skin Exam Present: intact - Routine Neurological Exam Present: oriented X3 - Detailed Neurological Exam: Coma Scale Eye Opening: Spontaneous Verbal Response: Oriented Motor Response: Obey commands Grace Coma Scale Total: 15 - Routine Psychiatric Exam Present: normal affect Results 03/01/18 06:20 03/01/18 06:20 Cardiac Enzymes 02/27/18 02/27/18 02/27/18 Range/Units 00:20 17:12 17:12 AST 12 L (15-37) U/L Troponin I 0.04 0.03 (0.02-0.05) ng/mL B-Natriuretic Peptide 548 H (0-100) pg/mL 02/28/18 02/28/18 Range/Units 09:14 09:14 AST 12 L (15-37) U/L Troponin I 0.03 (0.02-0.05) ng/mL B-Natriuretic Peptide (0-100) pg/mL Coagulation 02/27/18 02/28/18 02/28/18 Range/Units 17:12 00:20 09:14 PT 11.9 H (9.8-11.6) sec APTT 29.9 36.3 H D (23.4-31.7) sec B-Natriuretic Peptide 548 H (0-100) pg/mL 02/28/18 03/01/18 03/01/18 Range/Units 17:07 00:10 06:20 PT (9.8-11.6) sec APTT 37.0 H 42.9 H 47.6 H (23.4-31.7) sec B-Natriuretic Peptide (0-100) pg/mL CBC 02/27/18 02/28/18 03/01/18 Range/Units 17:12 09:14 06:20 WBC 11.4 H 12.9 H 10.6 (4.0-11.0) th/mm3 RBC 4.04 L 4.22 L 3.97 L (4.50-5.90) mil/mm3 Hgb 12.4 L 12.5 L 11.9 L (13.0-17.0) gm/dL Hct 36.6 L 38.7 L 36.5 L (39.0-51.0) % Plt Count 412 382 320 (150-450) th/mm3 Neut # (Auto) 7.4 8.7 H 5.5 (1.8-7.7) th/mm3 Lymph # (Auto) 2.7 2.9 3.7 (1.0-4.8) th/mm3 [place] # (Auto) 1.1 H 1.0 H 1.0 H (0.0-0.9) th/mm3 Eos # (Auto) 0.1 0.2 0.2 (0.0-0.4) th/mm3 Baso # (Auto) 0.1 0.1 0.1 (0.0-0.2) th/mm3 Comprehensive Metabolic Panel 02/27/18 02/28/18 03/01/18 Range/Units 17:12 09:14 06:20 Sodium 136 136 137 (136-145) meq/L Potassium 4.3 3.7 3.6 (3.5-5.1) meq/L Chloride 103 102 103 (98-107) meq/L Carbon Dioxide 26.0 25.9 28.3 (21.0-32.0) meq/L BUN 12 9 8 (7-18) mg/dL Creatinine 0.98 0.94 0.94 (0.60-1.30) mg/dL Calcium 8.0 L 8.8 D 8.5 (8.5-10.1) mg/dL AST 12 L 12 L (15-37) U/L ALT 22 22 (12-78) U/L Alkaline Phosphatase 105 102 (45-117) U/L Total Protein 7.3 7.2 (6.4-8.2) g/dL Albumin 3.4 3.3 L (3.4-5.0) g/dL Intake and Output 02/28/18 03/01/18 03/01/18 22:59 06:59 14:59 Intake Total 1580 / 1580 250 / 250 Output Total 2019 700 / 700 Balance -440 / -440 -700 / -700 250 / 250 Intake: IV 500 / 500 250 / 250 Cordarone Inj 450 MG In D5W Inj 250 / 250 250 / 250 241 ML @ 1 MG/MIN 33.33 mls/hr IV.CONT TITRATE PRN Rx#: [id number] Heparin/D5W 25,000 U/250 mL 25, 250 / 250 000 unit In 250 ml @ 1,000 UNITS/HR 10 mls/hr IV.CONT TITRATE PRN Rx#:[id number] Oral 1080 / 1080 Output: Urine 2019 700 / 700 Other: # Bowel Movements 0 Weight 93 kg - Imaging and Cardiology Imaging: Impressions Chest X-Ray 02/27/18 17:08 CONCLUSION: Patchy bibasilar infiltrates with prominence of pulmonary vasculature suggestive most likely of pulmonary edema versus pneumonia. Chest CTA 02/27/18 18:43 CONCLUSION: Bilateral pleural effusions, bibasilar consolidation and right middle lobe/ lingula atelectasis and/or infiltrate. There is no evidence of PE for technique. Myocardial Perfusion Scan Nuc Med 03/01/18 08:00 CONCLUSION: 1. No appreciable ischemia. Assessment and Plan - Assessment (1) Atrial fibrillation with RVR Code(s): I48.91 - Unspecified atrial fibrillation Status: Acute (2) CHF exacerbation Code(s): I50.9 - Heart failure, unspecified Status: Acute (3) Cardiomyopathy Code(s): I42.9 - Cardiomyopathy, unspecified Status: Acute - Plan Nuc ST with no evidence of ischemia. Patient remains in atrial fibrillation with episodes of RVR. We will start Xarelto 20mg QD for anticoagulation and stop the Heparin gtt. Patient has an EF of 30-35%, we will start patient on Entresto low dose and recheck echo in 3 months. We will stop IV Lasix and start Lasix 20mg PO BID. Start Metoprolol 25mg BID for rate control, discontinue amiodarone. Check BMP daily to monitor renal function and potassium levels. We will continue to monitor patient during hospitalization and follow up in office post discharge. The patient was seen and evaluated by Dr. Reyes who participated in care, management and decision making. - Attending Attestation Patient seen and examined. I reviewed and agree with the evaluation and plan as presented. ST negative for ischemia. Continue rate control, start anticoagulation with Xarelto for AF. Continue and titrate tx for CHF.
[2018-03-01] MEDS: Furosemide 20 MG Tablet PO SCH (17:10)
[2018-03-01] MEDS: Rivaroxaban 20 MG Tablet PO SCH (21:39)
[2018-03-01] MEDS: Metoprolol Tartrate 25 MG Tablet PO SCH (21:39)
[2018-03-02 07:35] LABS: Hematocrit 36.7 % (39.0-51.0); Hemoglobin 12.4 gm/dL (13.0-17.0); Mean Corpuscular HGB Conc 33.7 % (32.0-36.0); Mean Corpuscular Hemoglobin 30.4 pg (27.0-34.0); Mean Corpuscular Volume 90.3 fL (80.0-100.0); Mean Platelet Volume 9.3 fL (7.0-11.0); Platelet Count 358 th/mm3 (150-450); Red Blood Count 4.06 mil/mm3 (4.50-5.90); Red Cell Distribution Width 14.1 % (11.6-17.2); White Blood Count 11.1 th/mm3 (4.0-11.0)
[2018-03-02 08:00] LABS: Calcium 8.2 mg/dL (8.5-10.1); Carbon Dioxide 29.5 meq/L (21.0-32.0); Potassium 3.7 meq/L (3.5-5.1)
[2018-03-02 08:03] LABS: Chol/HDL Ratio 3.17 Ratio; HDL Cholesterol 42.9 mg/dL (40.0-60.0)
[2018-03-02] MEDS: Metoprolol Tartrate 25 MG Tablet PO SCH (08:30)
[2018-03-02] MEDS: Furosemide 20 MG Tablet PO SCH (08:30)
[2018-03-02] MEDS: Rivaroxaban 20 MG Tablet PO SCH (08:30)
--- NOTE | 2018-03-02 12:40 | P.PNIM ---
Subjective Interval history: Patient says he is feeling well. Denies any chest pain or shortness of breath. Physical Exam Vital signs: Vital Signs 03/01/18 13:00 03/01/18 14:00 03/01/18 15:00 Temperature 97.8 F Pulse Rate 74 78 65 Respiratory Rate 16 16 Blood Pressure 118/41 L 143/80 H Pulse Oximetry 96 96 03/01/18 16:00 03/01/18 17:00 03/01/18 18:00 Temperature Pulse Rate 80 74 70 Respiratory Rate Blood Pressure Pulse Oximetry 96 03/01/18 19:00 03/01/18 20:00 03/01/18 21:00 Temperature 97.4 F L Pulse Rate 80 74 72 Respiratory Rate 20 Blood Pressure 133/70 Pulse Oximetry 94 L 97 03/01/18 22:00 03/01/18 23:00 03/02/18 00:00 Temperature Pulse Rate 70 60 56 L Respiratory Rate 16 Blood Pressure 103/49 L Pulse Oximetry 98 03/02/18 01:00 03/02/18 02:00 03/02/18 03:00 Temperature Pulse Rate 54 L 50 L 46 L Respiratory Rate Blood Pressure Pulse Oximetry 97 03/02/18 04:00 03/02/18 05:00 03/02/18 05:11 Temperature Pulse Rate 54 L 52 L 56 L Respiratory Rate 16 Blood Pressure 124/62 Pulse Oximetry 98 03/02/18 05:12 03/02/18 06:00 03/02/18 07:00 Temperature 98.1 F Pulse Rate 60 64 Respiratory Rate 18 Blood Pressure 140/99 H Pulse Oximetry 98 98 03/02/18 08:00 03/02/18 09:00 03/02/18 10:00 Temperature Pulse Rate 58 L 58 L 56 L Respiratory Rate Blood Pressure Pulse Oximetry 98 03/02/18 11:00 Temperature 97.5 F L Pulse Rate 59 L Respiratory Rate 18 Blood Pressure 124/71 Pulse Oximetry 92 L Intake & Output 03/01/18 03/02/18 03/02/18 18:59 06:59 18:59 Intake Total 930 / 930 480 / 480 Output Total 1200 / 1200 500 / 500 Balance -270 / -270 -20 / -20 Weight 92.8 kg Intake: IV 450 / 450 Cordarone Inj 450 MG In D5W Inj 300 / 300 241 ML @ 1 MG/MIN 33.33 mls/hr IV.CONT TITRATE PRN Rx#: [id number] Heparin/D5W 25,000 U/250 mL 25, 150 / 150 000 unit In 250 ml @ 1,000 UNITS/HR 10 mls/hr IV.CONT TITRATE PRN Rx#:[id number] Oral 480 / 480 480 / 480 Output: Urine 1200 / 1200 500 / 500 Narrative: GENERAL: Patient sitting up in chair. Appears comfortable. SKIN: Warm and dry. HEAD: Normocephalic. EYES: No scleral icterus. No injection or drainage. NECK: Supple, trachea midline. No JVD . CARDIOVASCULAR: Regular rate and rhythm without murmurs, gallops, or rubs. RESPIRATORY: Breath sounds equal bilaterally. No accessory muscle use. GASTROINTESTINAL: Abdomen soft, non-tender, nondistended. MUSCULOSKELETAL: No cyanosis, or edema. BACK: Nontender without obvious deformity. No CVA tenderness. Results - Labs CBC & Chem 7: 03/02/18 05:35 03/02/18 05:35 Laboratory Results - last 24 hr 03/01/18 03/02/18 03/02/18 16:49 05:35 05:35 WBC 11.1 H RBC 4.06 L Hgb 12.4 L Hct 36.7 L MCV 90.3 MCH 30.4 MCHC 33.7 RDW 14.1 Plt Count 358 MPV 9.3 APTT 45.7 H Sodium Potassium Chloride Carbon Dioxide Anion Gap BUN Creatinine Estimated GFR POC Glucose 213 H Random Glucose Calcium Triglycerides Cholesterol LDL Cholesterol, Calc HDL Cholesterol Cholesterol/HDL Ratio 03/02/18 05:35 WBC RBC Hgb Hct MCV MCH MCHC RDW Plt Count MPV APTT Sodium 138 Potassium 3.7 Chloride 102 Carbon Dioxide 29.5 Anion Gap 7 BUN 12 Creatinine 0.96 Estimated GFR 76 L POC Glucose Random Glucose 85 Calcium 8.2 L Triglycerides 71 Cholesterol 136 LDL Cholesterol, Calc 79 HDL Cholesterol 42.9 Cholesterol/HDL Ratio 3.17 - Imaging Impressions Myocardial Perfusion Scan Nuc Med 03/01/18 08:00 CONCLUSION: 1. No appreciable ischemia. Assessment and Plan - Assessment (1) CHF exacerbation Code(s): I50.9 - Heart failure, unspecified Status: Acute (2) Atrial fibrillation with RVR Code(s): I48.91 - Unspecified atrial fibrillation Status: Acute - Plan 77-year-old white male with history of polymyalgia rheumatica who presents with one week history of progressively short of breath and lower extremity edema. Chest x-ray showed patchy bibasilar infiltrates likely pulmonary edema versus pneumonia. CT showed bilateral pleural effusion, bibasilar consolidation and right middle lobe atelectasis and/or infiltrate. No PE. //Acute systolic CHF exacerbation, new onset -echocardiogram showed ejection fraction of 30-35%, normal left ventricular size. Continue with IV Lasix, fluid restriction, monitor I's and O's. Recheck BMP tomorrow. Check hemoglobin A1c and lipid panel. =03/02. A1c still pending. LDL of 79. HDL 42.9. Follow-up cardiology recommendations regarding discharge. //New onset of A. fib, RVR -continue with amiodarone drip, switch to oral today if okay with cardiology, continue with heparin drip. Serial cardiac enzymes negative x2, cardiology following, stress test did not show any ischemia. //Bilateral pleural effusions. Improved on exam. Follow with primary care. Patient will need repeat chest x-ray as outpatient. Patient conveys understanding. //History of BPH. Continue home medications, Flomax. //DVT prophylaxispatient on therapeutic anticoagulant. //Discharged home once cleared by cardiology, PT evaluation. Discussed Condition With: Patient, nurse Discharge Planning: Awaiting cardiology recommendations regarding discharge. We will need repeat imaging chest as outpatient We will need follow-up with cardiology
--- NOTE | 2018-03-02 12:53 | P.DS ---
Date of admission: 02/27/18 20:23 Primary care physician: UNKNOWN Brief History from admission: 77-year-old male with a history of polymyalgia rheumatica who presents with a one-week history of progressively worsening shortness of breath, cough productive of clear sputum, mild peripheral edema in the ankles. He saw his primary care doctor 1 week ago and was prescribed Lasix which he has been taking without significant improvement. Patient denies any chest pain, nausea, vomiting, lightheadedness, dizziness, fevers, chills. DS: Diagnosis - Discharge Diagnosis (1) CHF exacerbation Status: Acute (2) Atrial fibrillation with RVR Status: Acute DS: Summary Hospital Course: 77-year-old white male with history of polymyalgia rheumatica who presents with one week history of progressively short of breath and lower extremity edema. Chest x-ray showed patchy bibasilar infiltrates likely pulmonary edema versus pneumonia. CT showed bilateral pleural effusion, bibasilar consolidation and right middle lobe atelectasis and/or infiltrate. No PE. BNP elevated in the 500s. Echocardiogram shows ejection fraction 30-35%. Cardiology was consulted. Patient underwent nuclear stress test which was negative for ischemia. Heart failure medications were adjusted, with addition of Entresto, metoprolol, Lasix. Patient was also found to have atrial fibrillation with RVR , and was started on metoprolol, Xarelto. Patient will need to follow-up with primary care for bilateral pleural effusions. Pleural effusion will need to be followed on repeat imaging. Patient conveys understanding. For problem based summary from most recent progress note, please see below. //Acute systolic CHF exacerbation, new onset -echocardiogram showed ejection fraction of 30-35%, normal left ventricular size. Continue with IV Lasix, fluid restriction, monitor I's and O's. Recheck BMP tomorrow. Check hemoglobin A1c and lipid panel. =03/02. A1c still pending. LDL of 79. HDL 42.9. Follow-up cardiology recommendations regarding discharge. //New onset of A. fib, RVR -continue with amiodarone drip, switch to oral today if okay with cardiology, continue with heparin drip. Serial cardiac enzymes negative x2, cardiology following, stress test did not show any ischemia. //Bilateral pleural effusions. Improved on exam. Follow with primary care. Patient will need repeat chest x-ray as outpatient. Patient conveys understanding. //History of BPH. Continue home medications, Flomax. //DVT prophylaxispatient on therapeutic anticoagulant. //Discharged home once cleared by cardiology, PT evaluation. Discussed Condition With: Patient, nurse Discharge Planning: Awaiting cardiology recommendations regarding discharge. We will need repeat imaging chest as outpatient We will need follow-up with cardiology - Time Spent with Patient Total time spent providing and/or coordinating discharge services: Greater than 30 minutes Exam Vital signs: Vital Signs 03/01/18 13:00 03/01/18 14:00 03/01/18 15:00 Temperature 97.8 F Pulse Rate 74 78 65 Respiratory Rate 16 16 Blood Pressure 118/41 L 143/80 H Pulse Oximetry 96 96 03/01/18 16:00 03/01/18 17:00 03/01/18 18:00 Temperature Pulse Rate 80 74 70 Respiratory Rate Blood Pressure Pulse Oximetry 96 03/01/18 19:00 03/01/18 20:00 03/01/18 21:00 Temperature 97.4 F L Pulse Rate 80 74 72 Respiratory Rate 20 Blood Pressure 133/70 Pulse Oximetry 94 L 97 03/01/18 22:00 03/01/18 23:00 03/02/18 00:00 Temperature Pulse Rate 70 60 56 L Respiratory Rate 16 Blood Pressure 103/49 L Pulse Oximetry 98 03/02/18 01:00 03/02/18 02:00 03/02/18 03:00 Temperature Pulse Rate 54 L 50 L 46 L Respiratory Rate Blood Pressure Pulse Oximetry 97 03/02/18 04:00 03/02/18 05:00 03/02/18 05:11 Temperature Pulse Rate 54 L 52 L 56 L Respiratory Rate 16 Blood Pressure 124/62 Pulse Oximetry 98 03/02/18 05:12 03/02/18 06:00 03/02/18 07:00 Temperature 98.1 F Pulse Rate 60 64 Respiratory Rate 18 Blood Pressure 140/99 H Pulse Oximetry 98 98 03/02/18 08:00 03/02/18 09:00 03/02/18 10:00 Temperature Pulse Rate 58 L 58 L 56 L Respiratory Rate Blood Pressure Pulse Oximetry 98 03/02/18 11:00 03/02/18 12:00 Temperature 97.5 F L Pulse Rate 59 L 52 L Respiratory Rate 18 Blood Pressure 124/71 Pulse Oximetry 92 L Intake & Output 03/01/18 03/02/18 03/02/18 18:59 06:59 18:59 Intake Total 930 / 930 480 / 480 Output Total 1200 / 1200 500 / 500 Balance -270 / -270 -20 / -20 Weight 92.8 kg Intake: IV 450 / 450 Cordarone Inj 450 MG In D5W Inj 300 / 300 241 ML @ 1 MG/MIN 33.33 mls/hr IV.CONT TITRATE PRN Rx#: [id number] Heparin/D5W 25,000 U/250 mL 25, 150 / 150 000 unit In 250 ml @ 1,000 UNITS/HR 10 mls/hr IV.CONT TITRATE PRN Rx#:[id number] Oral 480 / 480 480 / 480 Output: Urine 1200 / 1200 500 / 500 Results Procedures completed during hospitalization: Nuclear stress without any evidence of ischemia. No invasive procedures. Labs on day of discharge: Labs from last 24 hours 03/02/18 03/02/18 03/02/18 05:35 05:35 05:35 WBC RBC Hgb Hct MCV MCH MCHC RDW Plt Count MPV APTT 45.7 H Sodium 138 Potassium 3.7 Chloride 102 Carbon Dioxide 29.5 Anion Gap 7 BUN 12 Creatinine 0.96 Estimated GFR 76 L POC Glucose Random Glucose 85 Hemoglobin A1c Pending Calcium 8.2 L Triglycerides 71 Cholesterol 136 LDL Cholesterol, Calc 79 HDL Cholesterol 42.9 Cholesterol/HDL Ratio 3.17 03/02/18 03/01/18 05:35 16:49 WBC 11.1 H RBC 4.06 L Hgb 12.4 L Hct 36.7 L MCV 90.3 MCH 30.4 MCHC 33.7 RDW 14.1 Plt Count 358 MPV 9.3 APTT Sodium Potassium Chloride Carbon Dioxide Anion Gap BUN Creatinine Estimated GFR POC Glucose 213 H Random Glucose Hemoglobin A1c Calcium Triglycerides Cholesterol LDL Cholesterol, Calc HDL Cholesterol Cholesterol/HDL Ratio - Impressions ITS Impressions Chest X-Ray 02/27/18 17:08 CONCLUSION: Patchy bibasilar infiltrates with prominence of pulmonary vasculature suggestive most likely of pulmonary edema versus pneumonia. Chest CTA 02/27/18 18:43 CONCLUSION: Bilateral pleural effusions, bibasilar consolidation and right middle lobe/ lingula atelectasis and/or infiltrate. There is no evidence of PE for technique. Myocardial Perfusion Scan Nuc Med 03/01/18 08:00 CONCLUSION: 1. No appreciable ischemia. Discharge Plan - Discharge Disposition Patient Disposition: 01 Discharge Home - Discharge Condition Condition: Stable - Discharge Order Discharge Orders: Discharge Order (Routine); Ordered 03/02/18 Ordered By: Christopher Keyes - Discharge Details Anticipated Discharge Date: 03/02/18 - Physicians Team Primary Care Provider: UNKNOWN, Attending Provider: Christopher Keyes Other Providers: Shelby Reyes MD
--- NOTE | 2018-03-02 13:22 | P.PNCA ---
Subjective Interval history: Patient evaluated this AM. Patient denies any CP, pressure, palpitations, dizziness, edema or SOB. Patient states, "he feels great". Medications and Allergies Allergies Allergy/AdvReac Type Severity Reaction Status Date / Time No Known Allergies Allergy Verified 02/27/18 16:50 Home Medications Medication Instructions Recorded Confirmed Type alprazolam 0.5 mg PO DAILY 02/27/18 02/27/18 History finasteride 1 mg PO DAILY 02/27/18 02/27/18 History tamsulosin 0.4 mg PO DAILY 02/27/18 02/27/18 History trazodone 50 mg PO HS 02/27/18 02/27/18 History Active Medications: Active Medications Acetaminophen (Tylenol) 650 mg PO Q4H PRN PRN Reason: Temp > 100.4 Al Hydroxide/Mg Hydroxide (Milk Of Magnesia Liq) 30 ml PO Q12H PRN PRN Reason: Mild Constipation Last Admin: 03/01/18 17:13 Dose: 30 ml Bisacodyl (Dulcolax Supp) 10 mg RECTAL DAILY PRN PRN Reason: SEVERE CONSITIPATION Finasteride (Proscar) 1 mg PO DAILY [facility] Furosemide (Lasix) 20 mg PO BID@0900,1800 [facility] Last Admin: 03/02/18 08:30 Dose: 20 mg Lactulose (Lactulose Liq) 30 ml PO DAILY PRN PRN Reason: SEVERE CONSITIPATION Metoprolol Tartrate (Lopressor) 25 mg PO BID [facility] Last Admin: 03/02/18 08:30 Dose: 25 mg Ondansetron HCl (Zofran Inj) 4 mg IV.PUSH Q6H PRN PRN Reason: NAUSEA OR VOMITING Rivaroxaban (Xarelto) 20 mg PO DAILY [facility] Last Admin: 03/02/18 08:30 Dose: 20 mg Sacubitril/Valsartan (Entresto 24 Mg/26 Mg Tablet) 1 tab PO BID [facility] Last Admin: 03/02/18 08:30 Dose: 1 tab Sennosides (Senokot) 17.2 mg PO Q12H PRN PRN Reason: Moderate Constipation Sodium Chloride (Ns Flush) 2 ml IV.FLUSH BID [facility] Last Admin: 03/02/18 08:30 Dose: 2 ml Sodium Chloride (Ns Flush) 2 ml IV.FLUSH PRN PRN PRN Reason: FLUSH AFTER USING IV ACCESS Tamsulosin HCl (Flomax) 0.4 mg PO DAILY [facility] Last Admin: 03/02/18 08:30 Dose: 0.4 mg Physical Exam Vital signs: Vital Signs 03/01/18 14:00 03/01/18 15:00 03/01/18 16:00 Temperature 97.8 F Pulse Rate 78 65 80 Respiratory Rate 16 Blood Pressure 143/80 H Pulse Oximetry 96 03/01/18 17:00 03/01/18 18:00 03/01/18 19:00 Temperature 97.4 F L Pulse Rate 74 70 80 Respiratory Rate 20 Blood Pressure 133/70 Pulse Oximetry 96 94 L 03/01/18 20:00 03/01/18 21:00 03/01/18 22:00 Temperature Pulse Rate 74 72 70 Respiratory Rate Blood Pressure Pulse Oximetry 97 03/01/18 23:00 03/02/18 00:00 03/02/18 01:00 Temperature Pulse Rate 60 56 L 54 L Respiratory Rate 16 Blood Pressure 103/49 L Pulse Oximetry 98 97 03/02/18 02:00 03/02/18 03:00 03/02/18 04:00 Temperature Pulse Rate 50 L 46 L 54 L Respiratory Rate Blood Pressure Pulse Oximetry 03/02/18 05:00 03/02/18 05:11 03/02/18 05:12 Temperature Pulse Rate 52 L 56 L Respiratory Rate 16 Blood Pressure 124/62 Pulse Oximetry 98 98 03/02/18 06:00 03/02/18 07:00 03/02/18 08:00 Temperature 98.1 F Pulse Rate 60 64 58 L Respiratory Rate 18 Blood Pressure 140/99 H Pulse Oximetry 98 03/02/18 09:00 03/02/18 10:00 03/02/18 11:00 Temperature 97.5 F L Pulse Rate 58 L 56 L 59 L Respiratory Rate 18 Blood Pressure 124/71 Pulse Oximetry 98 92 L 03/02/18 12:00 Temperature Pulse Rate 52 L Respiratory Rate Blood Pressure Pulse Oximetry Intake & Output 03/01/18 03/02/18 03/02/18 18:59 06:59 18:59 Intake Total 930 / 930 480 / 480 Output Total 1200 / 1200 500 / 500 Balance -270 / -270 -20 / -20 Weight 92.8 kg Intake: IV 450 / 450 Cordarone Inj 450 MG In D5W Inj 300 / 300 241 ML @ 1 MG/MIN 33.33 mls/hr IV.CONT TITRATE PRN Rx#: [id number] Heparin/D5W 25,000 U/250 mL 25, 150 / 150 000 unit In 250 ml @ 1,000 UNITS/HR 10 mls/hr IV.CONT TITRATE PRN Rx#:[id number] Oral 480 / 480 480 / 480 Output: Urine 1200 / 1200 500 / 500 - Constitutional no acute distress - Routine HEENT Exam Head: Present: normocephalic Eye: Present: PERRL ENT: Present: mucous membranes moist - Routine Neck Exam Present: full ROM - Routine Respiratory Exam Present: CTA bilaterally - Routine Cardiovascular Exam Present: S1, S2, irregular rhythm. Absent: murmur, gallop, rubs - Routine Abdominal Exam Present: normoactive bowel sounds - Routine Extremities Exam Present: edema, full ROM, pulses intact. Absent: cyanosis, clubbing Comments: trace LE's - Routine Skin Exam Present: intact - Routine Neurological Exam Present: oriented X3 - Detailed Neurological Exam: Coma Scale Eye Opening: Spontaneous Verbal Response: Oriented Motor Response: Obey commands Grace Coma Scale Total: 15 - Routine Psychiatric Exam Present: normal affect Results 03/02/18 05:35 03/02/18 05:35 Coagulation 02/28/18 03/01/18 03/01/18 Range/Units 17:07 00:10 06:20 APTT 37.0 H 42.9 H 47.6 H (23.4-31.7) sec 03/02/18 Range/Units 05:35 APTT 45.7 H (23.4-31.7) sec Lipids 03/02/18 Range/Units 05:35 Triglycerides 71 (42-150) mg/dL Cholesterol 136 (120-200) mg/dL HDL Cholesterol 42.9 (40.0-60.0) mg/dL Cholesterol/HDL Ratio 3.17 Ratio CBC 03/01/18 03/02/18 Range/Units 06:20 05:35 WBC 10.6 11.1 H (4.0-11.0) th/mm3 RBC 3.97 L 4.06 L (4.50-5.90) mil/mm3 Hgb 11.9 L 12.4 L (13.0-17.0) gm/dL Hct 36.5 L 36.7 L (39.0-51.0) % Plt Count 320 358 (150-450) th/mm3 Neut # (Auto) 5.5 (1.8-7.7) th/mm3 Lymph # (Auto) 3.7 (1.0-4.8) th/mm3 [place] # (Auto) 1.0 H (0.0-0.9) th/mm3 Eos # (Auto) 0.2 (0.0-0.4) th/mm3 Baso # (Auto) 0.1 (0.0-0.2) th/mm3 Comprehensive Metabolic Panel 03/01/18 03/02/18 Range/Units 06:20 05:35 Sodium 137 138 (136-145) meq/L Potassium 3.6 3.7 (3.5-5.1) meq/L Chloride 103 102 (98-107) meq/L Carbon Dioxide 28.3 29.5 (21.0-32.0) meq/L BUN 8 12 (7-18) mg/dL Creatinine 0.94 0.96 (0.60-1.30) mg/dL Calcium 8.5 8.2 L (8.5-10.1) mg/dL Intake and Output 03/01/18 03/02/18 03/02/18 22:59 06:59 14:59 Intake Total 680 / 680 480 / 480 Output Total 1200 / 1200 500 / 500 Balance -520 / -520 -20 / -20 Intake: IV 200 / 200 Cordarone Inj 450 MG In D5W Inj 50 / 50 241 ML @ 1 MG/MIN 33.33 mls/hr IV.CONT TITRATE PRN Rx#: [id number] Heparin/D5W 25,000 U/250 mL 25, 150 / 150 000 unit In 250 ml @ 1,000 UNITS/HR 10 mls/hr IV.CONT TITRATE PRN Rx#:[id number] Oral 480 / 480 480 / 480 Output: Urine 1200 / 1200 500 / 500 Other: Weight 92.8 kg - Imaging and Cardiology Imaging: Impressions Myocardial Perfusion Scan Nuc Med 03/01/18 08:00 CONCLUSION: 1. No appreciable ischemia. Assessment and Plan - Assessment (1) Atrial fibrillation with RVR Code(s): I48.91 - Unspecified atrial fibrillation Status: Acute (2) CHF exacerbation Code(s): I50.9 - Heart failure, unspecified Status: Acute (3) Cardiomyopathy Code(s): I42.9 - Cardiomyopathy, unspecified Status: Acute - Plan Patient remains in atrial fibrillation, we will continue anticoagulation with Xarelto. We will continue treatment for CHF with Entresto and recheck echo in 3 months. Continue diuresis with Lasix. Patient is cleared for discharge from a cardiology standpoint. We will follow up in our office as outpatient. The patient was seen and evaluated by Dr. Reyes who participated in care, management and decision making. - Attending Attestation Patient seen and examined. I reviewed and agree with the evaluation and plan as presented. Continue tx for CHF and anticoagulation for AF. DC home. Will schedule outpt f/u.
[2018-03-02 15:31] LABS: Hemoglobin A1c 5.7 % (4.3-6.0)
== END 2018-03-02 13:27 | disposition home or self-care (01) ==
LOC: NEPC 16:40 → NEDA 20:23 → HCVI 23:40 → HCIS 02-28 18:56
PROVIDERS: ADMIT Internal Medicine; ATTEND Internal Medicine
DX: I50.21 Acute systolic (congestive) heart failure; I48.91 Unspecified atrial fibrillation; Z87.891 Personal history of nicotine dependence; I20.9 Angina pectoris, unspecified; I42.9 Cardiomyopathy, unspecified; M35.3 Polymyalgia rheumatica; N40.0 Benign prostatic hyperplasia without lower urinary tract symptoms; F41.9 Anxiety disorder, unspecified